=== PATIENT | female | born 1975 | race Hispanic/Latino ===

== ENCOUNTER 2017-09-13 06:09 | Day surgery (SDC) | payer BC ==
[2017-09-13 06:39] VITALS: BMI 22.8
[2017-09-13 07:17] LABS: HEMATOCRIT 42.9 % (34.0-47.0); MEAN CELL VOLUME 96.3 fl (81.0-99.0); MEAN CORPUSCULAR HGB CONC 33.2 g/dL (33.0-37.0); RED CELL DISTRIBUTION WIDTH 13.6 % (11.5-14.5); WHITE BLOOD COUNT 4.3 K/uL (4.8-10.8)
[2017-09-13] MEDS ORDERED: Bupivacaine 0.5% Inj(30mL) ONE (07:22)
[2017-09-13] MEDS ORDERED: ceFAZolin IV 1 gm in Dextrose 1 GM/50 ML BAG IVPB ONE (07:22)
[2017-09-13] MEDS ORDERED: Rocuronium 10 mg/ml (5 ml) ONE (07:28)
[2017-09-13] MEDS ORDERED: ePHEDrine 50 mg/ml Inj ONE (07:28)
[2017-09-13] MEDS ORDERED: Propofol 10 mg/ml Inj (20 ML) ONE (07:28)
[2017-09-13] MEDS ORDERED: Midazolam 2 MG/2 ML VIAL ONE (07:28)
[2017-09-13] MEDS ORDERED: Succinylcholine 200 mg/10 ml Inj IV ONE (07:28)
[2017-09-13] MEDS ORDERED: Lidocaine 4% (Laryng-O-Jet) Kit MM ONE (07:29)
[2017-09-13] MEDS ORDERED: Lactated Ringer's 1,000 ML IV ONE ×3 (08:35→12:25)
[2017-09-13] MEDS ORDERED: Dexamethasone 4 mg/1 ml ONE (09:09)
[2017-09-13] MEDS ORDERED: DiphenhydrAMINE 50 mg/ml Inj ONE (09:11)
[2017-09-13] MEDS ORDERED: Oxycodone/Acetaminophen 5/325 mg Tab PO PRN (11:19)
[2017-09-13] MEDS ORDERED: HYDROmorphone 0.5 mg/0.5 ml ISec IVP PRN (11:20)
[2017-09-13] MEDS ORDERED: Promethazine 25 MG in Sodium Chloride 0.9% 50 ML IVPB ONE (11:21)
[2017-09-13] MEDS ORDERED: Lactated Ringer's 1,000 ML IV SCH (11:30)
[2017-09-13 12:24] VITALS: RESP 18
[2017-09-13 17:30] VITALS: BP 101/64; PULSE 91; TEMP 98.4; O2SAT 100
--- NOTE | 2017-09-13 17:45 | PCM.OP ---
Operative Report - Operative Report Date of Surgery/Procedure: 09/13/17 Time of Surgery/Procedure: 08:00 Surgeon: Dr. Antonio Ibarra Supervisor Train Operations: Dr. Jose Villalta Anesthesia/Sedation: general/Dr. Forte Pre-Operative Diagnosis: RECURRENT endometriosis/abdominal pain Post-Operative Diagnosis: RECURRENT endometriosis/abdomiinal pain with rectal and appendiceal involvement Indication for Surgery: as above Operative Findings: endometriosis with rectal and appendiceal involvement Procedure/Operation Description: 1-Excision juanita-rectal endomeriosis. 2- Appendectomy. Brief History: This 42 year old woman was previously operated by Dr. Villalta on 01/06/2016 for endometriosis and now returns with recuurent symtoms. Dr. Villalta had initiated the procedure and noticed lesions involving the rectum and appendix. He obtained an intraoperative general surgery consultation. Description of the proecdure: Dr. Villalta had already initiated the robotic procedure (separate dictation Dr. Villalta). After taking control of the robotic console the appendix was retracted anteriorly and the mesentery was cauterized with electrocautery with particular attention to dessication of the appendiceal artery. With the base now exposed a double 3-0 loop PDS was placed on the base of the appendix. The appendix was transected and sent to pathology separately. Attention was then turned to the lesion on the rectum. With blunt and sharp dissection with the aid of electrocautery the lesion was incised circumfernetially and lifteed en-bloc from the rectal wall. The lesion was appropriately marked and sent to pathology separately. Hemostasis was examined and deemed adequate. The operation was then turned over to Dr. Villalta (separate dictation Dr. Villalta). Estimated Blood Loss: 5 cc Complications: none Discharge & Condition: stable
--- NOTE | 2017-09-13 20:45 | OP ---
PROCEDURE DATE: SURGEON: Jose Villalta MD. SECURITY SALES MANAGER: Antonio Ibarra MD. PREOPERATIVE DIAGNOSES: Pelvic pain, dysmenorrhea, dyspareunia, and bladder pain. POSTOPERATIVE DIAGNOSES: Pelvic pain, dysmenorrhea, dyspareunia, bladder pain, recurrent pelvic endometriosis. PROCEDURES PERFORMED: Cystoscopy with bilateral ureteral catheterization and injection of dye, hysteroscopy, da Marlen robotic laparoscopic excision of endometriosis, bilateral ureterolysis, ovariolysis, excision of perirectal mass and additionally to be dictated separately by Dr. Antonio Ibarra from General Surgery, an appendectomy was performed. COMPLICATIONS: None. SPECIMENS: Multiple specimens sent to pathology including specimens from the left perirectal fossa, left uterosacral ligament, left pelvic sidewall, right pelvic side wall, and right iliac fossa. Multiple specimens for each area. INDICATIONS FOR THE PROCEDURE: This patient is a 42-year-old female with a known history of endometriosis and pelvic pain who had undergone surgery 2 years ago for similar symptoms and now experiences a recurrence. She was evaluated in the office where an examination revealed evidence of both ovaries appearing to be adherent to the pelvic side wall and clear peritoneal signs of inflammation. Prior to the surgery, the patient was counseled with regards to the risks and benefits of the procedure with a high likelihood that the procedure may solve her problem and given the fact that it is a repeat surgery, the risk of ureteral injury and the necessity to perform a cystoscopy, injecting dye into the ureters, and stenting them. Once the consent was signed, the patient was taken to the OR. DESCRIPTION OF PROCEDURE: After adequate anesthesia was obtained, the patient was placed in the dorsal lithotomy position. She was prepped and draped. The surgeon was gowned and gloved. At this point, attention was in the vaginal area where under direct visualization, a cystoscope was inserted into the bladder and the bladder was distended with about 150 to 200 mL of saline. Both ureters appeared to be in the normal anatomical position. At this point, an open-ended catheter was used to cannulate the right ureter, all the way to the distal ureter and 2.5 mL of IC-Green were injected. At this point, the catheter was removed and injected into the contralateral ureter, up to the distal ureter where about 2.5 mL of IC-Green were injected directly. After these were removed, a pancystoscopy was performed. The bladder appeared to be free of lesions. A 16-English Vanegas was placed into the bladder. Attention was in the vaginal area where a speculum was placed in the vagina. The anterior lip of the cervix was grasped. The cervix was gently dilated. A hysteroscope was placed in the uterine cavity and uterine cavity was examined and appeared to be clear. At this point, the Valtchev uterine manipulator was placed in the uterus. Attention was on the abdomen. After re-gowning and re-gloving, an incision was made along her old umbilical incision and with the open laparoscopy technique, the abdominal cavity was entered. A cannula was then inserted and the abdomen was insufflated. At this point, under direct visualization, 3 additional ports were placed in the left lower quadrant, right upper quadrant and left mid quadrant. The da Marlen robot was docked and the procedure was commenced. The upper abdomen was examined and appeared to be free of any lesions. The appendix appeared to have some serosal areas that may be suggestive of endometriosis. Dr. Antonio Ibarra from General Surgery was called in and he performed an appendectomy that he will dictate separately. At this point, attention was in the pelvis. Findings were as follows. There was evidence of endometriosis on the left iliac area, the left pelvic sidewall, the left perirectal space, the right perirectal space, the right pelvic side wall. Both ovaries were firmly adherent to the pelvic side wall and significant adhesions were present between the rectal mesentery and the left ovary. Both fallopian tubes appeared to be normal and fluid from the hysteroscopy was seen coming out of fallopian tubes. At this point, attention was first on the left-hand side where some large nodules of endometriosis were identified in the left perirectal area, which was elevated and a full dissection was performed, excising a large area with great attention to preserve the left hypogastric nerve plexus. A full dissection was performed and a large swath of infiltrating nodule of endometriosis was excised. Attention was then again on the left-hand side where the rectal mesentery was firmly adherent with the left ovary and the margin of the pelvic brim. A full dissection was performed and then progressively the ovary was dissected with extreme care not to injure it. Once the ovary was elevated, the peritoneum was grasped and entered. The ureter was identified utilizing florescence and a full dissection was performed lateralizing the ureter and peeling it off from the peritoneum. A large area of peritoneum containing endometriosis was then excised and sent to pathology. Additionally, in the left ovarian fossa similarly, an area of endometriosis was then also excised and also sent to pathology. At this point, attention was on the right-hand side where the right ovary was firmly adherent to the peritoneum and the underlying ureter. The peritoneum was then entered and the ureter was progressively lateralized and both the ureter and the ovarian artery and vein were fully dissected out, finally being able to elevate the right ovary. Once the dissection was performed, I was finally able to excise a large area of peritoneum containing endometriosis, which was also sent to pathology. Additionally in the right perirectal area, there was another area of endometriosis, nodular, which was also excised completely. Additionally, the posterior cul-de-sac was also completely ablated utilizing energy. At this point, it was checked for hemostasis and appeared to be excellent. Both ureters appeared to be in perfect conditions. The pelvis was irrigated. The da Marlen robot was undocked. The abdomen was desufflated, the instruments were removed. Incision on the fascia was closed with 0 PDS and 4-0 Monocryl for the skin. At the end of the procedure, all tapes and instruments counts were correct. The patient tolerated the procedure well, and was taken to recovery in excellent condition. Jose Villalta MD
== END 2017-09-13 17:52 | disposition home or self-care (01) ==
LOC: H.OPSURG 06:09
PROVIDERS: ATTEND Obstetrics & Gynecology Reproductive Endocrinology
DX: R10.2 Pelvic and perineal pain (principal); N94.6 Dysmenorrhea, unspecified; N94.19 Other specified dyspareunia; N80.3 Endometriosis of pelvic peritoneum; E06.3 Autoimmune thyroiditis
CPT/HCPCS: 36415; 44970; 58662; 85027; 86850; 86900; 88305; C1729; J0330; J0690; J1100; J1170; J1200; J2001; J2250; J2405; J2550; J2704; J2765; J3010; J7030; J7040; J7120